=== PATIENT | female | born 1975 | race Two or more races ===

== ENCOUNTER 2024-05-15 13:13 | Inpatient (IN) | payer BC, OTHER ==
[~2024-05-15] VITALS: Ht 162.6 cm; Wt 136.4 kg
--- NOTE | 2024-05-15 13:35 | ED.PDOC ---
History of Present Illness(SKN HPI Comments A 49 YEAR OLD FEMALE PRESENTS TO THE ED WITH COMPLAINT OF FACIAL RASH AND INFECTION. PATIENT STATES SHE HAS BEEN EXPERIENCING A FACIAL RASH FOR THE PAST 3 WEEKS. PATIENT REPORTS SHE RECENTLY TESTED POSITIVE FOR MRSA AND WAS PRESCRIBED CLINDAMYCIN FOR 1 WEEK, BUT NOTES THERE HAS BEEN NO IMPROVEMENT IN HER SYMPTOMS. PATIENT REPORTS SHE WAS INSTRUCTED BY HER PRIMARY CARE PHYSICIAN TO COME IN THE ED FOR EVALUATION AND IV ANTIBIOTIC TREATMENT. PATIENT ALSO NOTES THAT SHE RECEIVED 1 DOSE OF VANCOMYCIN 1 G IV EARLIER TODAY. PATIENT DENIES FEVER, CHILLS, SHORTNESS OF BREATH, CHEST PAIN, ABDOMINAL PAIN, NAUSEA, VOMITING, HEADACHE, OR OTHER COMPLAINTS. NO OTHER SYMPTOMS OR MODIFYING FACTORS AT THIS TIME. PATIENT IS ALERT, ORIENTED X 4, AND HAS STEADY GAIT. Chief Complaint: Rash Time Seen by MD: 13:21 Primary Care Provider: NUBIA GERMAIN History of Present Illness: Nurses Notes, Medications, Allergies Allergies: Coded Allergies: NO KNOWN ALLERGIES (Unverified , 05/15/24) Information Source: Patient Mode of Arrival: Ambulatory Severity: Moderate Timing: Weeks Duration: Since onset Prehospital treatment: None Location: Face Mechanism: Spontaneous Onset Developed: Rash Occurence: Indoors Object: None Condition of Object: None Retained Foreign Body: No Wound Type: Papule, Pustule Immunization Status of Animal: NA Tetanus: UTD History of: None Associated Signs and Symptoms: Redness, Swelling, Pain Past Medical History PAST MEDICAL HISTORY: Denies Surgical History: Denies all surgeries CURRICULUM MANAGER History: No Pertinent CURRICULUM MANAGER History Family History Family History: Reviewed,noncontributory to illness Social History Smoker: Non-Smoker Alcohol: Denies ETOH Use Drugs: Denies Drug Use Lives In: Home Constitutional: reports: others (ANXIOUS ); denies: chills, diaphoresis, fatigue, fever, malaise, sweats, weakness EENTM: denies: blurred vision, double vision, ear bleeding, ear discharge, ear drainage, ear pain, ear ringing, eye pain, eye redness, hearing loss, mouth pain, mouth swelling, nasal discharge, nose bleeding, nose congestion, nose pain, photophobia, tearing, throat pain, throat swelling, voice changes, others Respiratory: denies: cough, hemoptysis, orthopnea, SOB at rest, shortness of breath, SOB with excertion, stridor, wheezing, others Cardiovascular: denies: chest pain, dizzy spells, diaphoresis, Dyspnea on exertion, edema, irregular heart beat, left arm pain, lightheadedness, palpitations, PND, syncope, others Gastrointestinal: denies: abdomen distended, abdominal pain, blood streaked bowels, constipated, diarrhea, dysphagia, difficulty swallowing, hematemesis, melena, nausea, poor appetite, poor fluid intake, rectal bleeding, rectal pain, vomiting, others Genitourinary: denies: abnormal vagina bleeding, burning, dyspareunia, dysuria, flank pain, frequency, hematuria, incontinence, pain, , vagina discharge, urgency, others Neurological: denies: dizziness, fainting, headache, left sided numbness, left sided weakness, numbness, paresthesia, pre-existing deficit, right sided numbness, right sided weakness, seizure, speech problems, tingling, tremors, weakness, others Musculoskeletal: denies: back pain, gout, joint pain, joint swelling, muscle pain, muscle stiffness, neck pain, others Integumetry: reports: lesions, rash (FACIAL RASH), wounds; denies: bruises, change in color, change in hair/nails, dryness, laceration, lumps, others Allergic/Immunocompromised: denies: Difficulty Healing, Frequent Infections, Hives, Itching, others Hematologic/Lymphatic: denies: anemia, blood clots, easy bleeding, easy bruising, swollen glands, others Endocrine: denies: excessive hunger, excessive sweating, excessive thirst, excessive urination, flushing, intolerance to cold, intolerance to heat, unexplained weight gain, unexplained weight loss, others Psychiatric: denies: anxiety, bipolar disorder, depression, hopeless, panic disorder, schizophrenia, sleepless, suicidal, others All Other Systems: Reviewed and Negative Physical Exam General Appearance: Mild Distress, Obese, Other (ANXIOUS ) HEENT: Normal ENT Inspection, PERRL/EOMI, Pharynx Normal, TMs Normal, Other (PAPULAR, MACULAR, AND PUSTULAR SKIN RASH ON BILATERAL CHEEK, FOREHEAD, AND CHIN AREAS, ACNE VULGARIS??) Neck: Full Range of Motion, Non-Tender, Normal, Normal Inspection Respiratory: Chest Non-Tender, Lungs Clear, No Accessory Muscle Use, No Respiratory Distress, Normal Breath Sounds Cardiovascular: No Edema, No JVD, No Murmur, No Gallop, Normal Peripheral Pulses, Regular Rate/Rhythm Breast Exam: Deferred Gastrointestinal: No Organomegaly, Non Tender, No Pulsatile Mass, Normal Bowel Sounds, Soft Genitalia: Deferred Pelvic: Deferred Rectal: Deferred Extremities: No calf tenderness, Normal capillary refill, Normal inspection, Normal range of motion, Non-tender, No pedal edema Musculoskeletal : Apperance: Normal Neurologic: Alert, coil assembler II-XII nml as Tested, No Motor Deficits, Normal Affect, Normal Mood, No Sensory Deficits Cerebellar Function: Normal Reflexes: Normal Skin: Dry, Rash (PAPULAR, MACULAR, AND PUSTULAR SKIN RASH ON BILATERAL CHEEK, FOREHEAD, AND CHIN AREAS. LOCALIZED REDNESS, TENDERNESS AND MILD SWELLING ON CHEEKS, CHIN AND FOREHEAD, CELLULITIS?? ), Warm Peripheral Pulses: 2+ carotid (R), 2+ carotid (L) Lymphatic: No Adenopathy Was a procedure done? Was a procedure done?: No Differential Diagnosis (INTG) Differential Diagnosis: N/A Differential Diagnosis: Atopic dermatitis, Cellulitis, Contact Dermatitis, Erysipelas, Impetigo, Intertrigo, Urticaria Differential Diagnosis: N/A Abscess: N/A Differential Diagnosis: N/A X-Ray, Labs, Meds, VS Vital Signs Date Time Temp Pulse Resp B/P (MAP) Pulse Ox O2 Delivery O2 Flow Rate FiO2 05/15/24 13:22 98.1 99 20 151/98 (115) 94 Lab Test 05/15/24 13:53 Range/Units White Blood Count 8.3 4.4-10.8 10^3/uL Red Blood Count 4.94 4.0-5.20 10^6/uL Hemoglobin 17.9 H 12.2-16.2 g/dL Hematocrit 51.3 H 36.0-46.0 % Mean Corpuscular Volume 104.0 H 80.0-100.0 fL Mean Corpuscular Hemoglobin 36.2 H 28.0-32.0 pg Mean Corpuscular Hemoglobin Concent 34.8 32.0-36.0 g/dL Red Cell Distribution Width 15.3 H 11.8-14.3 % Platelet Count 259 140-450 10^3/uL Mean Platelet Volume 6.6 L 6.9-10.8 fL Neutrophils (%) (Auto) 69.5 37.0-80.0 % Lymphocytes (%) (Auto) 22.3 10.0-50.0 % Monocytes (%) (Auto) 5.6 0.0-12.0 % Eosinophils (%) (Auto) 2.2 0.0-7.0 % Basophils (%) (Auto) 0.4 0.0-2.0 % Neutrophils # (Auto) 5.8 1.6-8.6 10 ^3/uL Lymphocytes # (Auto) 1.9 0.4-5.4 10 ^3/uL Monocytes # (Auto) 0.5 0-1.3 10 ^3/uL Eosinophils # (Auto) 0.2 0-0.8 10 ^3/uL Basophils # (Auto) 0 0-0.2 10 ^3/uL Nucleated Red Blood Cells 0.2 % Sodium Level 140 136-145 mmol/L Potassium Level 4.2 3.5-5.1 mmol/L Chloride Level 102 98-107 mmol/L Carbon Dioxide Level 27 20-31 mmol/L Anion Gap 11 5-15 Blood Urea Nitrogen 8 L 9-23 mg/dL Creatinine 0.76 0.550-1.02 mg/dL Glomerular Filtration Rate Calc 97 >90 mL/min BUN/Creatinine Ratio 10.5 10.0-20.0 Serum Glucose 121 H 74-106 mg/dL Lactic Acid Level 2.1 H 0.4-2.0 mmol/L Calcium Level 9.8 8.7-10.4 mg/dL Current Medications Medications (Trade) Dose Ordered Sig/Lottie Route Start Time Stop Time Status Last Admin Clindamycin Phosphate 50 ml @ 50 mls/hr ONCE ONCE IV 05/15/24 13:30 05/15/24 14:29 DC 05/15/24 13:43 Ketorolac Tromethamine (Toradol Injection) 30 mg ONCE ONCE IV 05/15/24 13:30 05/15/24 13:32 DC 05/15/24 13:43 X-Ray, Labs, Meds, VS Comment EXTERNAL NOTES: NONE LABS ORDERED: CBC, BMP, LACTIC ACID W/REFLEX, BLOOD CULTURE REVIEWED AND INTERPRETED RESULTS: NORMAL IMAGING ORDERED: NONE INDEPENDENT HISTORIANS: NONE TREATMENT ORDERED: CLINDAMYCIN 900 MG IV, TORADOL 30 MG IV PATIENT'S CASE AND RESULTS HAVE BEEN DISCUSSED WITH THE ED ATTENDING PHYSICIAN AND THEY AGREE WITH MY PLAN OF CARE. I HAVE INFORMED THE PATIENT THAT SINCE SHE HAS ALREADY BEEN PRESCRIBED CLINDAMYCIN FOR HER MRSA INFECTION AND THERE HAS BEEN NO IMPROVEMENT, THAT SHE WOULD NEED TO BE ADMITTED TO THIS HOSPITAL FOR FURTHER ANTIBIOTIC TREATMENT AND EVALUATION. UPON MY PHYSICAL EXAMINATION, THE PATIENT HAD A RED AND RAISED RASH ON HER FACE CONSISTENT WITH SIGNS OF INFECTION. THE PATIENT AGREES WITH MY PLAN OF CARE AND AGREED TO BE ADMITTED. THE ON-CALL HOSPITALIST WILL BE CONTACTED FOR ADMISSION OF THIS PATIENT FOR FURTHER TREATMENT AND EVALUATION. Time of 1ST Reevaluation: 15:00 Reevaluation 1ST: Unchanged Patient Education/Counseling: Diagnosis, Treatment Family Education/Counseling: Diagnosis, Treatment Departure 1 Departure Time of Disposition: 15:00 Impression: Primary Impression: Facial cellulitis Additional Impressions: MRSA (methicillin resistant Staphylococcus aureus) infection Failure of outpatient treatment Acne vulgaris Disposition: ADMITTED INPATIENT Admit to: Med Surg Condition: Serious Critical Care Note Critical Care Time?: No Stability Stability form required: Yes Unstable for transfer: Requires medication, ED Physician Assesment, Possible rapid decline Heart Score Heart Score: Heart Score Response (Comments) Value History N/A 0 EKG N/A 0 Age N/A 0 Risk Factors N/A 0 Troponin N/A 0 Total 0 I personally scribed for SHANTHI SMALLWOOD ([email or web address]) on 05/15/24 at 13:35. El ectronically submitted by Goran Garsia ([email or web address]). I personally scribed for SHANTHI SMALLWOOD ([email or web address]) on 05/15/24 at 14:19. El ectronically submitted by Goran Garsia ([email or web address]). I personally scribed for SHANTHI SMALLWOOD ([email or web address]) on 05/15/24 at 14:30. El ectronically submitted by Goran Garsia ([email or web address]). I personally scribed for SHANTHI SMALLWOOD ([email or web address]) on 05/15/24 at 14:32. El ectronically submitted by Goran Garsia ([email or web address]). SHANTHI SMALLWOOD May 15, 2024 13:35
[2024-05-15] MEDS: KETOROLAC TROMETH 30 MG/ML 1ML VIAL IV ONE (13:43)
[2024-05-15] MEDS: CLINDAMYCIN 900MG IV 50 ML IV ONE (13:43)
[2024-05-15 14:21] LABS: Hemoglobin 17.9 g/dL (12.2-16.2); Neutrophils # (auto) 5.8 10 ^3/uL (1.6-8.6)
[2024-05-15 14:23] LABS: Basophils # (auto) 0 10 ^3/uL (0-0.2); Basophils % (auto) 0.4 % (0.0-2.0); Eosinophils # (auto) 0.2 10 ^3/uL (0-0.8); Eosinophils % (auto) 2.2 % (0.0-7.0); Hematocrit 51.3 % (36.0-46.0); Lymphocytes # (auto) 1.9 10 ^3/uL (0.4-5.4); Lymphocytes % (auto) 22.3 % (10.0-50.0); Mean Corpuscular Hemoglobin 36.2 pg (28.0-32.0); Mean Corpuscular Hgb Conc. 34.8 g/dL (32.0-36.0); Monocytes # (auto) 0.5 10 ^3/uL (0-1.3); Monocytes % (auto) 5.6 % (0.0-12.0); Neutrophils % (auto) 69.5 % (37.0-80.0); Nucleated Red Blood Cells % 0.2 %; Platelet Count (auto) 259 10^3/uL (140-450); Red Blood Cells 4.94 10^6/uL (4.0-5.20); Red Cell Distribution Width 15.3 % (11.8-14.3); White Blood Cell 8.3 10^3/uL (4.4-10.8)
[2024-05-15 14:26] LABS: Chloride 102 mmol/L (98-107); Potassium 4.2 mmol/L (3.5-5.1); Sodium 140 mmol/L (136-145)
[2024-05-15 14:27] LABS: Anion Gap 11 (5-15); Calcium 9.8 mg/dL (8.7-10.4); Carbon Dioxide 27 mmol/L (20-31)
[2024-05-15 14:32] LABS: BUN/Creatinine Ratio 10.5 (10.0-20.0)
[2024-05-15 14:40] LABS: Blood Urea Nitrogen 8 mg/dL (9-23); Glucose 121 mg/dL (74-106)
[2024-05-15 14:46] LABS: Lactic Acid w/Reflex 2.1 mmol/L (0.4-2.0)
--- NOTE | 2024-05-15 15:26 | DVHHP2 ---
History of Present Illness Reason for Visit: face rash History of Present Illness 49-year-old morbidly obese patient comes into the ED patient states she has a facial rash and has been having this rash for the past 3 weeks patient states that she has recently tested positive for MRSA and was given clindamycin for a week after taking clindamycin for a week patient had no improvement worsening facial skin evaluation patient went to the PCP PCP stated that the patient's treatment of antibiotics for not successful and the patient required IV antibiotics and should be admitted to the hospital patient was seen in the ED and IV antibiotics were recommended Review of Systems Constitutional: Yes: Weakness; No: Fever, Chills, Sweats, Malaise, Other Eyes: No: Pain, Vision change, Conjunctivae inflammation, Eyelid inflammation, Other, Redness ENT: No: Ear pain, Ear discharge, Nose pain, Nose discharge, Nose congestion, Mouth pain, Mouth swelling, Throat pain, Throat swelling, Other Respiratory: No: Cough, Dry, Shortness of breath, SOB with excertion, Wheezing, Hemoptysis, Pleuritic Pain, Sputum, Wheezing, Other Cardiovascular: No: Chest Pain, Palpitations, Orthopnea, Paroxysmal Noc. Dyspnea, Edema, Lt Headedness, Other Gastrointestinal: No: Nausea, Vomiting, Abdominal Pain, Diarrhea, Constipation, Melena, Hematochezia, Other Genitourinary: No Dysuria, No Frequency, No Incontinence, No Hematuria, No Retention, No Other Musculoskeletal: No: other, neck pain, shoulder pain, arm pain, back pain, hand pain, leg pain, foot pain Skin: Rash, Lesions; No: Jaundice, Bruising, Other Neurological: No: Weakness, Numbness, Incoordination, Change in speech, Confusion, Seizures, Other Allergies: Coded Allergies: NO KNOWN ALLERGIES (Unverified , 05/15/24) Exam Vital Signs Vital Signs Date Time Temp Pulse Resp B/P (MAP) Pulse Ox O2 Delivery O2 Flow Rate FiO2 05/15/24 13:22 98.1 99 20 151/98 (115) 94 General Appearance: Alert, Oriented X3, mild distress HEENT: Atraumatic, PERRLA Respiratory: Clear to auscultation, Normal air movement Cardiovascular: Regular rate, Normal S1, Normal S2 Abdominal: Normal bowel sounds, Soft, No tenderness Extremities: No clubbing, No cyanosis Skin: No rashes, No breakdown Neuro: Normal gait, Normal speech Psych/Mental Status: Mood NL Labs/Xrays Labs Test 05/15/24 13:53 Range/Units White Blood Count 8.3 4.4-10.8 10^3/uL Red Blood Count 4.94 4.0-5.20 10^6/uL Hemoglobin 17.9 H 12.2-16.2 g/dL Hematocrit 51.3 H 36.0-46.0 % Mean Corpuscular Volume 104.0 H 80.0-100.0 fL Mean Corpuscular Hemoglobin 36.2 H 28.0-32.0 pg Mean Corpuscular Hemoglobin Concent 34.8 32.0-36.0 g/dL Red Cell Distribution Width 15.3 H 11.8-14.3 % Platelet Count 259 140-450 10^3/uL Mean Platelet Volume 6.6 L 6.9-10.8 fL Neutrophils (%) (Auto) 69.5 37.0-80.0 % Lymphocytes (%) (Auto) 22.3 10.0-50.0 % Monocytes (%) (Auto) 5.6 0.0-12.0 % Eosinophils (%) (Auto) 2.2 0.0-7.0 % Basophils (%) (Auto) 0.4 0.0-2.0 % Neutrophils # (Auto) 5.8 1.6-8.6 10 ^3/uL Lymphocytes # (Auto) 1.9 0.4-5.4 10 ^3/uL Monocytes # (Auto) 0.5 0-1.3 10 ^3/uL Eosinophils # (Auto) 0.2 0-0.8 10 ^3/uL Basophils # (Auto) 0 0-0.2 10 ^3/uL Nucleated Red Blood Cells 0.2 % Sodium Level 140 136-145 mmol/L Potassium Level 4.2 3.5-5.1 mmol/L Chloride Level 102 98-107 mmol/L Carbon Dioxide Level 27 20-31 mmol/L Anion Gap 11 5-15 Blood Urea Nitrogen 8 L 9-23 mg/dL Creatinine 0.76 0.550-1.02 mg/dL Glomerular Filtration Rate Calc 97 >90 mL/min BUN/Creatinine Ratio 10.5 10.0-20.0 Serum Glucose 121 H 74-106 mg/dL Lactic Acid Level 2.1 H 0.4-2.0 mmol/L Calcium Level 9.8 8.7-10.4 mg/dL Assessment/Plan Assessment/Plan Admit to [facility] Suspected cellulitis infection with MRSA IV hydration IV antibiotics Patient morbidly obese Patient states positive for MRSA skin infection IV antibiotics with vancomycin Recommendation for his infectious disease evaluation No stated history hyperglycemia However patient has elevated glucose We will place on insulin sliding scale mild Plan discussed with: Patient Problem List: (1) MRSA (methicillin resistant Staphylococcus aureus) infection (2) Facial cellulitis (3) Failure of outpatient treatment (4) Morbid obesity with BMI of 50.0-59.9, adult Date of Service: May 15, 2024 Billing Provider: GREY GRACIA MD Common Visit Codes: [id number] INP/OBS CARE (HIGH) GREY GRACIA MD May 15, 2024 15:26
[2024-05-15] MEDS ORDERED: DEXTROSE (50%) 50ML SYRG IV PRN (15:30)
[2024-05-15] MEDS ORDERED: MAALOX PLUS or MAALOX 30 ML PO PRN (15:30)
[2024-05-15] MEDS ORDERED: VANCOMYCIN PER PHARMACY 0 MG IV SCH (15:30)
[2024-05-15] MEDS ORDERED: DOCUSATE SOD 100 MG CAP PO PRN (15:30)
[2024-05-15] MEDS ORDERED: ACETAMINOPHEN 325 MG TAB PO PRN (15:30)
[2024-05-15] MEDS ORDERED: ONDANSETRON HCL 4 MG/2 ML VIAL IV PRN (15:30)
[2024-05-15] MEDS: SODIUM CHLORIDE 0.9% 1,000 ML IV SCH (15:30)
[2024-05-15] MEDS: InsuLIN REG 1unit/0.01ml Soln (100units/ml) SC SCH (16:00)
[2024-05-15] MEDS: VANCOMYCIN 1GM/250ML KIT 200 ML IV SCH (16:00)
[2024-05-15] MEDS: ACCU-CHEK COMFORT CURVE STRIP VI SCH (16:00)
[2024-05-15 18:51] VITALS: PULSE 84; RESP 18; O2SAT 98
[2024-05-15 19:00] VITALS: BP 135/85; PULSE 20; RESP 18; TEMP 97.8; O2SAT 96
[2024-05-15 19:20] LABS: Urine Bacteria MANY /hpf (None Seen); Urine Blood Negative /uL (Negative); Urine Clarity Turbid (Clear); Urine Color Yellow (Yellow); Urine Hyaline Cast FEW /lpf (0 - 2); Urine Mucus FEW (None Seen); Urine Protein, UAD 1+ (Negative); Urine Specific Gravity 1.038 (1.001-1.035); Urine Urobilinogen Normal (Negative); Urine WBC 3 /hpf (0 - 5); Urine pH 5.5 (5.0-9.0)
[2024-05-15 20:00] VITALS: PULSE 86; RESP 18; O2SAT 96
[2024-05-15 21:00] VITALS: BP 135/80; PULSE 86; RESP 20; TEMP 97.9; O2SAT 96
[2024-05-15] MEDS: MORPHINE SULFATE INJ 2 MG/ml SYRG IV PRN (21:02)
[2024-05-15] MEDS: LORazepam 0.5 MG TAB PO PRN (23:24)
[2024-05-16] VITALS (8 sets, daily range): BP systolic 108–139; BP diastolic 62–85; PULSE 72–92; RESP 17–20; TEMP 97.6–98.1; O2SAT 92–97
[2024-05-16] MEDS ORDERED: PANT40TA2 PO (03:26)
[2024-05-16] MEDS ORDERED: LEVO125C3 PO (03:32)
[2024-05-16 05:36] LABS: Basophils # (auto) 0.1 10 ^3/uL (0-0.2); Eosinophils # (auto) 0.2 10 ^3/uL (0-0.8); Hemoglobin 16.2 g/dL (12.2-16.2); Lymphocytes # (auto) 1.2 10 ^3/uL (0.4-5.4); Neutrophils % (auto) 70.6 % (37.0-80.0); White Blood Cell 6.6 10^3/uL (4.4-10.8)
[2024-05-16 05:38] LABS: Eosinophils % (auto) 3.6 % (0.0-7.0); Hematocrit 46.4 % (36.0-46.0); Lymphocytes % (auto) 18.2 % (10.0-50.0); Mean Corpuscular Hemoglobin 36.4 pg (28.0-32.0); Mean Corpuscular Volume 104.1 fL (80.0-100.0); Monocytes # (auto) 0.4 10 ^3/uL (0-1.3); Monocytes % (auto) 6.6 % (0.0-12.0); Neutrophils # (auto) 4.6 10 ^3/uL (1.6-8.6); Nucleated Red Blood Cells % 0.2 %; Platelet Count (auto) 216 10^3/uL (140-450); Red Blood Cells 4.46 10^6/uL (4.0-5.20); Red Cell Distribution Width 15.3 % (11.8-14.3)
[2024-05-16 05:49] LABS: Anion Gap 11 (5-15); Carbon Dioxide 24 mmol/L (20-31); Chloride 105 mmol/L (98-107); Potassium 3.7 mmol/L (3.5-5.1); Sodium 140 mmol/L (136-145)
[2024-05-16 05:50] LABS: Calcium 9.1 mg/dL (8.7-10.4)
[2024-05-16 05:55] LABS: BUN/Creatinine Ratio 12.9 (10.0-20.0); Blood Urea Nitrogen 9 mg/dL (9-23)
[2024-05-16 05:58] LABS: Glucose 110 mg/dL (74-106)
[2024-05-16 08:25] LABS: Amphetamine Screen, Urine Neg (NEGATIVE); Barbiturate Scree,Urine Neg (NEGATIVE); Benzodiazephine Screen, Urine Neg (NEGATIVE); Cannabinoid Screen, Urine Pos (NEGATIVE); Cocaine Screen, Urine Neg (NEGATIVE); Opiate Scree,Urine Pos (NEGATIVE); Phencyclidine Screen, Urine Neg (NEGATIVE)
--- NOTE | 2024-05-16 11:29 | DVHPNRES ---
Progress Note Date Seen: May 16, 2024 Resident Creating Document: LOLY ALEXIS RESIDENT Medical Necessity Reason Pt with a Central, PICC or Fol: No Medical Necessity Reason facial redness, cellulitis vs seborrheic dermatitis Subjective Review of Systems This is a 49-year-old with a past medical history significant for diverticulosis, diverticulitis, hypothyroidism and arthritis who presented to the ED with a 3 week history of facial redness with pimple like rashes. Rashes initially started mainly in the right nasolabial fold. looked pimples-like with some amount of pus. It did not burn or itch and was not draining pus. The base of the rashes is red. These as gradually been spreading over her face. First tot he left nasal nasolabial region amd around her mouth, then moving up her nose and not in between her gabella region and now in her frontal scalp. Patient went to her PCP where she was initially given doxycycline after the rash was scraped and analyzed. Doxycycline was changed to clindamycin for a week after the test came back positive for MRSA. Patient did not notice any improvement after the treatment. PCP advised her to come tot he ED for IV antibiotic treatment as she as been unsuccess with the oral treatment. In the ED, patient's vital signs were normal limits,cbc unremarkable, chemistry showed elevated serum sugar and urinalysis was positive for UTI. Patient was started on IV vancomycin. This morning during my assessment, patient said she is looking better she did mentioned the she had of noticed that the rashes is better than it has been for the the past couple of weeks. Constitutional: Denies fever no chills no feeling of malaise, Just weakness HEENT: Denies headache, ear pain, ear discharges, conjunctivitis, nasolabial rashes and faical redness Cardiovascular: Denies chest pain, palpitation, orthopnea, PND, or pedal edema Respiratory: Denies shortness of breath, cough, sputum production, hemoptysis, GI: Denies abdominal pain, nausea, vomiting, diarrhea, hematemesis, hematochezia, : Denies frequency, urgency, hematuria, Endocrine: Denies unintentional weight gain or weight loss, Syed: Denies easy bruising, bleeding disorders, epistaxis Musculoskeletal: Arthritis in her back. Neurological: No: Weakness, Numbness, Incoordination, Change in speech, Confusion, Seizures, Other Psych: No evidence of depression, gregorio, suicidal ideation Allergies: NKDA Past medical history: Diverticulosis, diverticulitis, hypothyroidism, arthritis Surgical history: Cholecystectomy, colectomy for diverticulitis and colon mass (2019) Family history: Heart transplant ( Father); grandmother: pancreastic cancer Social history: Currently employed here at [employer], does not drink or smoke no drug use Objective vital signs Vital Sign Date Time Temp Pulse Resp B/P (MAP) Pulse Ox O2 Delivery O2 Flow Rate FiO2 05/16/24 09:00 97.8 84 17 108/74 (85) 95 97.8 05/15/24 20:00 Room Air* 0 21 Total Intake and Output 05/15/24 05/15/24 05/16/24 15:00 23:00 07:00 Intake Total 50 ml 725 ml Balance 50 ml 725 ml medications Current Medications Medications Dose Ordered Sig/Lottie Route Start Time Stop Time Status Last Admin Dose Admin Vancomycin HCl 0 ml @ 0 mls/hr UD IV 05/15/24 15:30 Diagnostic Test (Pha) 1 strip IQ4HR 05/15/24 16:00 05/16/24 09:55 1 STRIP Insulin Human Regular IQ4HR SC 05/15/24 16:00 05/16/24 09:55 2 UNITS Dextrose 50 ml UD PRN IV 05/15/24 15:30 Sodium Chloride 1,000 ml @ 60 mls/hr [id number] IV 05/15/24 15:30 05/15/24 15:30 60 MLS/HR Lorazepam 0.5 mg Q6HP PRN PO 05/15/24 15:30 05/15/24 23:24 0.5 MG Al Hydrox/Mg Hydrox/Simethicone 30 ml Q6HP PRN PO 05/15/24 15:30 Docusate Sodium 100 mg BIDPRN PRN PO 05/15/24 15:30 Acetaminophen 650 mg Q6HP PRN PO 05/15/24 15:30 Temazepam 15 mg QHSP PRN PO 05/15/24 15:30 Acetaminophen/ Hydrocodone Bitart 1 tab Q4HP PRN PO 05/15/24 15:30 Ondansetron HCl 4 mg Q4HP PRN IV 05/15/24 15:30 Morphine Sulfate 2 mg Q4HPRN PRN IV 05/15/24 15:30 05/15/24 21:02 2 MG Vancomycin HCl 350 ml @ 200 mls/hr Q10H IV 05/16/24 11:00 Examination General examination- Morbidly obese female, not in acute distress HEENT: PEERLA, no acute nasal discharge Face: Erythematous rashes with papules/furuncle mainly in the right nasolabile region R> L, progressing proximally and distally on the face. Chest: S1-S2 audible, rate and rhythm regular, no murmur Lung: CTAB, no wheeze or rhonchi Abdomen: Nondistend, BS+, nontenderness, no organomegaly Musculoskeletal: no acute joint swelling or tenderness Lower extremity: no leg edema Neurological: cranial nerves intact, no acute dysarthria or dysphagia Psychiatry-- Normal mood and affect Skin- no acute rash or purpura noted. laboratory and microbiology Laboratory Tests 05/16/24 04:39 Test 05/16/24 04:39 Range/Units Serum Glucose 110 H 74-106 mg/dL Labs and/or images reviewed: Labs reviewed by me, Image(s) reviewed by me Problem List/Assessment/Plan Problem List/Assessment/Plan Facial cellulitis due to MRSA --> Continue IV vancomycin --> mupirocin ointment --> monitor for improvement --> consulted infectious disease as the patient used clindamycin for 10 days before without improvement ---> ordered wound culture and Wound Care consult UTI --> Ceftriaxone; pending urine cultures Hypothyroidism --> levothyroxine 125mcg ( Home meds) Morbid obesity -->BMI of 52.8 --> counseled the patient on the importance of adopting healthy lifestyle with diet and exercise in order to lose weight Prediabetes --> Hgb A1c: 5.9 --> Diet and life style modification Marijuana use disorder --> counseled the patient marijuana use cessation for 18 minutes; reviewed drug screen GERD --> Pantoprazole Goals of care discussed for 20 minutes; full code Case and plan discussed with Dr. Le Plan discussed with: Patient, Other (Nurse) My Orders My Orders Orders - LOLY ALEXIS Procedure Category Date Status Time Hemoglobin A1c LAB 05/17/24 Verified 04:00 Addendum Addendum Addendum I was physically present for the flores portions of the service provided to patient by THE RESIDENT. I have reviewed the documentation, discussed the case with resident and agree with the resident's documentation except as noted. Also the patient's clinical case was discussed with the patient's nurse. This medical document was created using an electronic medical record system with computerized dictation system. Although this document has been carefully reviewed, there might still be some phonetic and typographical errors. These areas are purely typographical due to imperfections of the software programs, and do not reflect any compromise in the patient's medical care. Late signature. Date of Service: May 16, 2024 Billing Provider: NICOLE LE MD Common Visit Codes: [id number] INP/OBS CARE(HIGH) Secondary Visit Codes: [id number] CHNG SMOKING >10MIN (Counseled marijuana use cessation for 18 minutes), [id number] CARE PLAN 30 MINUTES (20 minutes) LOLY ALEXIS RESIDENT May 16, 2024 11:29 NICOLE LE MD May 17, 2024 04:53
[2024-05-16] MEDS: HYDROcodone-ACET 5/325MG TAB PO PRN (11:38)
[2024-05-16] MEDS: ACCU-CHEK COMFORT CURVE STRIP VI SCH (12:00)
[2024-05-16] MEDS: InsuLIN REG 1unit/0.01ml Soln (100units/ml) SC SCH (12:20)
[2024-05-16] MEDS: VANCOMYCIN 1.75GM/350ML 350 ML IV SCH (12:30)
[2024-05-16] MEDS: cefTRIAXone 1GM/50ML D5W 50 ML IV ONE (13:28)
[2024-05-16] MEDS: TEMAZEPAM 15 MG CAP PO PRN (22:19)
[2024-05-17] VITALS (7 sets, daily range): BP systolic 116–155; BP diastolic 64–99; PULSE 83–88; RESP 17–21; TEMP 97.6–98.1; O2SAT 95–98
--- NOTE | 2024-05-17 09:28 | DVHPN2 ---
Progress Note Date Seen: May 17, 2024 Medical Necessity Reason Pt with a Central, PICC or Fol: No Subjective Patient reports: No new complaints Review of Systems: HEENT:Normal, CVS:Normal, RESPIRATORY:Normal, GI:Normal, :Normal, MSK:Normal, NEURO:Normal Objective vital signs Vital Sign Date Time Temp Pulse Resp B/P (MAP) Pulse Ox O2 Delivery O2 Flow Rate FiO2 05/17/24 09:00 98.1 85 17 125/92 (103) 96 98.1 05/16/24 20:00 Room Air* 0 21 Total Intake and Output 05/16/24 05/16/24 05/17/24 15:00 23:00 07:00 Intake Total 900 ml 2190 ml 400 ml Balance 900 ml 2190 ml 400 ml medications Current Medications Medications Dose Ordered Sig/Lottie Route Start Time Stop Time Status Last Admin Dose Admin Vancomycin HCl 0 ml @ 0 mls/hr UD IV 05/15/24 15:30 Dextrose 50 ml UD PRN IV 05/15/24 15:30 Sodium Chloride 1,000 ml @ 60 mls/hr [id number] IV 05/15/24 15:30 05/15/24 15:30 60 MLS/HR Lorazepam 0.5 mg Q6HP PRN PO 05/15/24 15:30 05/16/24 12:25 0.5 MG Al Hydrox/Mg Hydrox/Simethicone 30 ml Q6HP PRN PO 05/15/24 15:30 Docusate Sodium 100 mg BIDPRN PRN PO 05/15/24 15:30 Acetaminophen 650 mg Q6HP PRN PO 05/15/24 15:30 Temazepam 15 mg QHSP PRN PO 05/15/24 15:30 05/16/24 22:19 15 MG Acetaminophen/ Hydrocodone Bitart 1 tab Q4HP PRN PO 05/15/24 15:30 05/16/24 11:38 1 TAB Ondansetron HCl 4 mg Q4HP PRN IV 05/15/24 15:30 Morphine Sulfate 2 mg Q4HPRN PRN IV 05/15/24 15:30 05/16/24 20:32 2 MG Vancomycin HCl 350 ml @ 200 mls/hr Q10H IV 05/16/24 11:00 05/17/24 08:34 200 MLS/HR Diagnostic Test (Pha) 1 strip ACHS 05/16/24 11:30 05/17/24 06:27 1 STRIP Insulin Human Regular ACHS SC 05/16/24 11:30 05/16/24 12:20 2 UNITS Ceftriaxone Sodium 50 ml @ 100 mls/hr DAILY@09 IV 05/17/24 09:00 Examination: GENERAL:Normal, HEENT:Normal, NECK:Normal, LUNGS:Normal, CVS:Normal, ABDOMEN:Normal, MSK:Normal, MSK:Abnormal (FACIAL CELLULTIS), SKIN:Normal, NEURO:Normal, :Normal laboratory and microbiology Laboratory Tests 05/16/24 04:39 Test 05/17/24 06:25 Range/Units Serum Glucose Pending Microbiology Date/Time Source Procedure Growth Status 05/15/24 13:53 Blood Blood Culture - Preliminary NO GROWTH AFTER 24 HOURS OF INCUBATION. Resulted Problem List/Assessment/Plan Problem List/Assessment/Plan #1 facial cellulitis/ rash: ct face, iv antibiotics, trial of steroids #2 hypothyroidism: check tsh, cont meds #3 morbid obesity #4 elevated mcv #5 uti: culture, iv rocephin advance care planning- full code- time spent 19 mins Plan discussed with: Patient My Orders My Orders Orders - KENIA TRIPP MD Procedure Category Date Status Time Urine Bacterial ALISON 05/17/24 Verified Culture 09:[address] 05/17/24 Verified 09:20 Hydrocortone 2.5% PHA 05/17/24 Verified Topical Crm (Hydrocort 10:00 Thiamine Inj PHA 05/17/24 Verified 10:00 Date of Service: May 17, 2024 Billing Provider: KENIA TRIPP MD Common Visit Codes: [id number] INP/OBS CARE(HIGH) Secondary Visit Codes: [id number] CARE PLAN 30 MINUTES KENIA TRIPP MD May 17, 2024 09:28
[2024-05-17] MEDS ORDERED: HYDROCORTISONE 2.5% TOPICAL CREAM 30GM TUBE TOP SCH (10:00)
[2024-05-17 11:03] LABS: Chloride 108 mmol/L (98-107); Potassium 4.1 mmol/L (3.5-5.1); Sodium 141 mmol/L (136-145)
[2024-05-17 11:04] LABS: Anion Gap 11 (5-15); Calcium 9.1 mg/dL (8.7-10.4); Carbon Dioxide 22 mmol/L (20-31)
[2024-05-17 11:09] LABS: BUN/Creatinine Ratio 10.9 (10.0-20.0); Blood Urea Nitrogen 7 mg/dL (9-23); Glucose 123 mg/dL (74-106)
--- NOTE | 2024-05-17 11:14 | DVH ---
CLINICAL INDICATION: 49 years old, Female; FACIAL CELLULITIS. TECHNIQUE: Noncontrast CT of the facial bones was performed. Sagittal and coronal reformatted images are provided. COMPARISON: None CT Dose: CTDI volume is 66.97 mGy. Dose-length product is 1346.89 mGy*cm FINDINGS: No fracture or dislocation. The orbits are intact. Nasal bones are intact. Pterygoid plates intact. There is mild mucosal thickening in the bilateral maxillary sinuses. The rest of the paranasal sinu ses are clear. Bilateral mastoid air cells are clear. No infiltration of the soft tissues. No fluid collection. IMPRESSION: 1. Mild mucosal thickening in the maxillary sinuses. 2. No inflammatory changes noted in the face. All CT scans at this medical facility are performed using dose modulation techniques as appropriate t o a performed exam including the following: Automated exposure control was utilized; adjustment of th e MA and/or KV according to patient size; and use of iterative reconstruction technique.
[2024-05-17] MEDS: THIAMINE 100mg/ml INJ (200mg/2ml VIAL) IV SCH (12:18)
[2024-05-17] MEDS: cefTRIAXone 1GM/50ML D5W 50 ML IV SCH (12:19)
[2024-05-17] MEDS: HYDROCORTONE 1% TOPICAL CREAM 30 GM TUBE TOP SCH (13:04)
[2024-05-17] MEDS: TRIAMCINOLONE ACET0.5% TOPICAL CRE 15GM TOP SCH (22:14)
[2024-05-18] VITALS (7 sets, daily range): BP systolic 109–148; BP diastolic 72–89; PULSE 78–83; RESP 16–20; TEMP 97.5–98; O2SAT 93–100
[2024-05-18 08:15] LABS: Basophils # (auto) 0 10 ^3/uL (0-0.2); Basophils % (auto) 0.1 % (0.0-2.0); Eosinophils # (auto) 0.2 10 ^3/uL (0-0.8); Eosinophils % (auto) 3.3 % (0.0-7.0); Hematocrit 44.8 % (36.0-46.0); Hemoglobin 15.5 g/dL (12.2-16.2); Lymphocytes # (auto) 1.2 10 ^3/uL (0.4-5.4); Lymphocytes % (auto) 18.9 % (10.0-50.0); Mean Corpuscular Hemoglobin 35.7 pg (28.0-32.0); Mean Corpuscular Hgb Conc. 34.5 g/dL (32.0-36.0); Mean Corpuscular Volume 103.3 fL (80.0-100.0); Monocytes # (auto) 0.4 10 ^3/uL (0-1.3); Monocytes % (auto) 7.3 % (0.0-12.0); Neutrophils # (auto) 4.3 10 ^3/uL (1.6-8.6); Neutrophils % (auto) 70.4 % (37.0-80.0); Nucleated Red Blood Cells % 0.5 %; Platelet Count (auto) 202 10^3/uL (140-450); Red Blood Cells 4.33 10^6/uL (4.0-5.20); Red Cell Distribution Width 14.7 % (11.8-14.3); White Blood Cell 6.1 10^3/uL (4.4-10.8)
[2024-05-18 08:24] LABS: Alanine Aminotransferase 69 U/L (7-40); Albumin 3.6 g/dL (3.2-4.8); Alkaline Phosphatase 115 U/L (46-116); Anion Gap 9 (5-15); Aspartate Aminotransferase 155 U/L (13-40); BUN/Creatinine Ratio 12.7 (10.0-20.0); Blood Urea Nitrogen 7 mg/dL (9-23); Carbon Dioxide 23 mmol/L (20-31); Chloride 106 mmol/L (98-107); Glucose 110 mg/dL (74-106); Potassium 4.1 mmol/L (3.5-5.1); Sodium 138 mmol/L (136-145)
[2024-05-18 08:25] LABS: Bilirubin, Total 0.8 mg/dL (0.2-1.0); Total Protein 6.3 g/dL (5.7-8.2)
--- NOTE | 2024-05-18 09:53 | DVHPN2 ---
Progress Note Date Seen: May 18, 2024 Medical Necessity Reason Pt with a Central, PICC or Fol: No Subjective Patient reports: No new complaints Review of Systems: HEENT:Normal, CVS:Normal, RESPIRATORY:Normal, GI:Normal, :Normal, MSK:Normal, NEURO:Normal Objective vital signs Vital Sign Date Time Temp Pulse Resp B/P (MAP) Pulse Ox O2 Delivery O2 Flow Rate FiO2 05/18/24 08:41 97.9 83 16 137/86 (103) 100 97.9 05/17/24 20:00 Room Air* 0 21 Total Intake and Output 05/17/24 05/17/24 05/18/24 15:00 23:00 07:00 Intake Total 350 ml 1700 ml 650 ml Balance 350 ml 1700 ml 650 ml medications Current Medications Medications Dose Ordered Sig/Lottie Route Start Time Stop Time Status Last Admin Dose Admin Vancomycin HCl 0 ml @ 0 mls/hr UD IV 05/15/24 15:30 Lorazepam 0.5 mg Q6HP PRN PO 05/15/24 15:30 05/16/24 12:25 0.5 MG Al Hydrox/Mg Hydrox/Simethicone 30 ml Q6HP PRN PO 05/15/24 15:30 Docusate Sodium 100 mg BIDPRN PRN PO 05/15/24 15:30 Acetaminophen 650 mg Q6HP PRN PO 05/15/24 15:30 Temazepam 15 mg QHSP PRN PO 05/15/24 15:30 05/18/24 00:21 15 MG Acetaminophen/ Hydrocodone Bitart 1 tab Q4HP PRN PO 05/15/24 15:30 05/17/24 13:50 1 TAB Ondansetron HCl 4 mg Q4HP PRN IV 05/15/24 15:30 Morphine Sulfate 2 mg Q4HPRN PRN IV 05/15/24 15:30 05/16/24 20:32 2 MG Vancomycin HCl 350 ml @ 200 mls/hr Q10H IV 05/16/24 11:00 05/18/24 03:40 200 MLS/HR Ceftriaxone Sodium 50 ml @ 100 mls/hr DAILY@09 IV 05/17/24 09:00 05/18/24 09:52 100 MLS/HR Thiamine HCl 100 mg DAILY IV 05/17/24 10:00 05/18/24 09:52 100 MG Triamcinolone Acetonide 1 applic BID TOP 05/17/24 22:00 05/18/24 09:52 1 APPLIC Examination: GENERAL:Normal, HEENT:Normal, NECK:Normal, LUNGS:Normal, CVS:Normal, ABDOMEN:Normal, MSK:Normal, MSK:Abnormal (FACIAL REDNESS REDUCED), SKIN:Normal, NEURO:Normal, :Normal laboratory and microbiology Laboratory Tests 05/18/24 07:50 Test 05/18/24 07:50 Range/Units Serum Glucose 110 H 74-106 mg/dL Microbiology Date/Time Source Procedure Growth Status 05/16/24 11:31 Face Gram Stain - Final Resulted 05/16/24 11:31 Face Wound Culture - Preliminary Resulted 05/15/24 13:53 Blood Blood Culture - Preliminary NO GROWTH AFTER 48 HOURS OF INCUBATION. Resulted Problem List/Assessment/Plan Problem List/Assessment/Plan #1 facial cellulitis/ rash: iv antibiotics, trial of steroids #2 hypothyroidism: check tsh, cont meds #3 morbid obesity #4 elevated mcv #5 uti: culture, iv rocephin advance care planning- full code- time spent 19 mins Plan discussed with: Patient My Orders My Orders Orders - KENIA TRIPP MD Procedure Category Date Status Time Triamcinolone 0.5% PHA 05/17/24 In Process Topical Cr (Kenalog 0 22:00 Insert Midline ORDERS 05/17/24 Transmitted 18:56 Date of Service: May 18, 2024 Billing Provider: KENIA TRIPP MD Common Visit Codes: [id number] INP/OBS CARE(HIGH) KENIA TRIPP MD May 18, 2024 09:53
[2024-05-18] MEDS: THIAMINE HCL 100 MG TAB PO SCH (10:00)
[2024-05-19 01:00] VITALS: BP 109/76; PULSE 82; RESP 19; TEMP 98; O2SAT 97
[2024-05-19 05:00] VITALS: BP 118/81; PULSE 86; RESP 20; TEMP 97.9; O2SAT 93
[2024-05-19 08:00] VITALS: PULSE 95; RESP 18; O2SAT 100
[2024-05-19 09:16] VITALS: BP 127/59; PULSE 95; RESP 18; TEMP 98.1; O2SAT 94
--- NOTE | 2024-05-19 09:39 | DVHDS2 ---
Discharge Summary Date of Admission May 15, 2024 at 15:17 Date of Discharge: May 19, 2024 Labs/Diagnostic Data: Laboratory Results Test 05/18/24 13:23 05/18/24 07:50 05/16/24 22:03 05/16/24 04:39 Vancomycin Level Trough 19.9 ug/mL (5-10) White Blood Count 6.1 10^3/uL (4.4-10.8) Red Blood Count 4.33 10^6/uL (4.0-5.20) Hemoglobin 15.5 g/dL (12.2-16.2) Hematocrit 44.8 % (36.0-46.0) Mean Corpuscular Volume 103.3 fL (80.0-100.0) Mean Corpuscular Hemoglobin 35.7 pg (28.0-32.0) Mean Corpuscular Hemoglobin Concent 34.5 g/dL (32.0-36.0) Red Cell Distribution Width 14.7 % (11.8-14.3) Platelet Count 202 10^3/uL (140-450) Mean Platelet Volume 7.0 fL (6.9-10.8) Neutrophils (%) (Auto) 70.4 % (37.0-80.0) Lymphocytes (%) (Auto) 18.9 % (10.0-50.0) Monocytes (%) (Auto) 7.3 % (0.0-12.0) Eosinophils (%) (Auto) 3.3 % (0.0-7.0) Basophils (%) (Auto) 0.1 % (0.0-2.0) Neutrophils # (Auto) 4.3 10 ^3/uL (1.6-8.6) Lymphocytes # (Auto) 1.2 10 ^3/uL (0.4-5.4) Monocytes # (Auto) 0.4 10 ^3/uL (0-1.3) Eosinophils # (Auto) 0.2 10 ^3/uL (0-0.8) Basophils # (Auto) 0 10 ^3/uL (0-0.2) Nucleated Red Blood Cells 0.5 % Sodium Level 138 mmol/L (136-145) Potassium Level 4.1 mmol/L (3.5-5.1) Chloride Level 106 mmol/L (98-107) Carbon Dioxide Level 23 mmol/L (20-31) Anion Gap 9 (5-15) Blood Urea Nitrogen 7 mg/dL (9-23) Creatinine 0.55 mg/dL (0.550-1.02) Glomerular Filtration Rate Calc 114 mL/min (>90) BUN/Creatinine Ratio 12.7 (10.0-20.0) Serum Glucose 110 mg/dL (74-106) Calcium Level 9.0 mg/dL (8.7-10.4) Total Bilirubin 0.8 mg/dL (0.2-1.0) Aspartate Amino Transferase (AST) 155 U/L (13-40) Alanine Aminotransferase (ALT) 69 U/L (7-40) Alkaline Phosphatase 115 U/L (46-116) Total Protein 6.3 g/dL (5.7-8.2) Albumin 3.6 g/dL (3.2-4.8) Thyroid Stimulating Hormone (TSH) 2.91 uIU/mL (0.55-4.78) POC Glucose 146 mg/dl (70-106) Hemoglobin A1c 5.9 % A1C (<5.7) Random Vancomycin Level 9.4 ug/mL (5-10) Test 05/15/24 16:35 05/15/24 16:28 Lactic Acid Level 1.8 mmol/L (0.4-2.0) Urine Color Yellow (Yellow) Urine Clarity Turbid (Clear) Urine pH 5.5 (5.0-9.0) Urine Specific [place] 1.038 (1.001-1.035) Urine Protein 1+ (Negative) Urine Ketones Trace (Negative) Urine Blood Negative /uL (Negative) Urine Nitrite 2+ (Negative) Urine Bilirubin Negative (Negative) Urine Urobilinogen Normal mg/dL (Negative) Urine Leukocyte Esterase Negative /uL (Negative) Urine RBC 1 /hpf (0 - 4) Urine WBC 3 /hpf (0 - 5) Urine Squamous Epithelial Cells Few /hpf (<5) Urine Bacteria Many /hpf (None Seen) Urine Hyaline Casts Few /lpf (0 - 2) Urine Mucus Few (None Seen) Urine Glucose Normal mg/dL (Normal) Urine Opiates Screen Pos (NEGATIVE) Urine Fentanyl Screen Neg (NEGATIVE) Urine Barbiturates Screen Neg (NEGATIVE) Urine Phencyclidine Screen Neg (NEGATIVE) Urine Amphetamines Screen Neg (NEGATIVE) Urine Benzodiazepines Screen Neg (NEGATIVE) Urine Cocaine Screen Neg (NEGATIVE) Urine Cannabinoids Screen Pos (NEGATIVE) Other Laboratory Tests 05/18/24 07:50 Brief Hx & Hospital Course: SEE DICTATED NOTE Condition at Discharge: Fair Final Diagnosis/Problems List FACIAL RASH Discharge Disposition: Home Discharge Instruct/Medications Diet: Cardiac 2g Na,low cholest Activity: No Restrictions, As Tolerated Follow Up/Referral: ANGEL GARY PCP IN 1 WK Medications: RESUME HOME MEDS SCRIPT TO PHARMACY Discharge Statement: "Patient was advised to return to the ER or call 911 if any headaches, dizziness, shortness of breath, chest pain, abdominal pain, bleeding, fevers, or worsening of medical condition. Patient was counseled about treatment plan, medications, possible side effects, patientverbalized understanding. All questions were answered to the best of my ability. This discharge took greater then 30 minutes in planning, reviewing documentation, counseling the patient, and discussing with other team members." ASSESSMENT ASSESSMENT Assessment FACIAL RASH Date of Service: May 19, 2024 Billing Provider: KENIA TRIPP MD Common Visit Codes: [id number] DISCH DAY >30min KENIA TRIPP MD May 19, 2024 09:39
[2024-05-19] MEDS ORDERED: METR1GEL TOP (09:54)
[2024-05-19] MEDS ORDERED: BACDST PO (09:54)
--- NOTE | 2024-05-19 09:55 | DVHDS ---
DATE OF DISCHARGE: 05/19/2024 HISTORY OF PRESENT ILLNESS: The patient is a 49-year-old lady who was admitted with a history of facial rash and was recently positive for MRSA. The patient has a history of hypothyroidism and diverticulitis. HOSPITAL COURSE: The patient had a maxillofacial CT that showed mild mucosal thickening in the maxillary sinuses. The patient was treated with intravenous antibiotics. The patient had evidence of UTI and was treated with IV antibiotics. The patient's TSH was 2.9. The patient is now improved in his symptoms and will be discharged home to be on metronidazole gel b.i.d. She will follow up with her primary in 1 week. FINAL DIAGNOSES: Therefore, * Facial rash with questionable cellulitis with likely rosacea. * Hypothyroidism. * Morbid obesity. * Urinary tract infection. Time spent in discharge planning and review of plan with the patient and nursing was 38 minutes. MD ADRIANA Ley/JAY JAY TID: [id number] RECEIPT: [id number]
[2024-05-19] MEDS ORDERED: VANCOMYCIN 1GM/250ML KIT 250 ML IV SCH (14:00)
== END 2024-05-19 11:07 | disposition home or self-care (01) | DRG 603 ==
LOC: ER 13:13 → OVERFLOW 15:17 → EEVIPCON 15:17 → CENTRAL 18:38
PROVIDERS: ADMIT Hospitalist; ATTEND Internal Medicine
DX: L03.211 Cellulitis of face (principal); Z68.43 Body mass index [BMI] 50.0-59.9, adult; N39.0 Urinary tract infection, site not specified; B95.62 Methicillin resistant Staphylococcus aureus infection as the cause of diseases classified elsewhere; E66.01 Morbid (severe) obesity due to excess calories; L70.0 Acne vulgaris; E03.9 Hypothyroidism, unspecified; R73.03 Prediabetes; K21.9 Gastro-esophageal reflux disease without esophagitis; L71.9 Rosacea, unspecified; Z90.49 Acquired absence of other specified parts of digestive tract; Z80.0 Family history of malignant neoplasm of digestive organs
CPT/HCPCS: 36415; 70486; 80048; 80053; 80202; 80307; 81001; 82962; 83036; 83605; 84443; 85025; 87040; 87086; 87205; G0378; J1815; J1885; J3490